=== PATIENT | female | born 1970 | race Caucasian/White ===

== ENCOUNTER 2020-12-01 19:08 | Emergency (ER) | payer MEDICAID ==
[~2020-12-01] VITALS: Ht 162.6 cm; Wt 64.9 kg
[2020-12-01 19:21] VITALS: BP 126/89
--- NOTE | 2020-12-01 19:27 | NUR ---
ERMD ASSESSING PT AT TENT.
--- NOTE | 2020-12-01 20:02 | NUR ---
EMT AT [facility] PERFORMING EKG.
--- NOTE | 2020-12-01 20:35 | NUR ---
ANDREA SWAB COLLECTED AND TAKEN TO LAB.
[2020-12-01] MEDS ORDERED: ALBU0.0912 IH (21:09)
--- NOTE | 2020-12-01 21:30 | NUR ---
pt eloped without d/c. Dr. Mercado made aware.
== END 2020-12-01 21:30 | disposition home or self-care (01) ==
LOC: MED 19:08
DX: U07.1 COVID-19 (principal); F12.90 Cannabis use, unspecified, uncomplicated; Z79.899 Other long term (current) drug therapy
CPT/HCPCS: 71045; 93005; 99285

== ENCOUNTER 2022-06-05 11:29 | Emergency (ER) | payer MEDICAID ==
[~2022-06-05] VITALS: Ht 162.6 cm; Wt 73.0 kg
[~2022-06-05 11:29] MED LIST: ALBU0.0912 IH
[2022-06-05 11:34] VITALS: BP 122/101
--- NOTE | 2022-06-05 11:47 | NUR ---
Dr. Venegas evaluating patient in chair C.
--- NOTE | 2022-06-05 11:55 | NUR ---
Pt ambulated to bed 11 and placed onto cardiac nurse specialist.
--- NOTE | 2022-06-05 12:11 | NUR ---
RAD at bedside
--- NOTE | 2022-06-05 12:16 | NUR ---
ASSUMED PATIENT CARE, NURSING ASSESSMENT COMPLETED.
[2022-06-05 12:19] LABS: APPEARANCE,URINE CLEAR (CLEAR); BILIRUBIN,URINE NEGATIVE (NEGATIVE); BLOOD, URINE NEGATIVE (NEGATIVE); COLOR,URINE YELLOW (YELLOW); LEUKOCYTE ESTERASE ,URINE TRACE (NEGATIVE); NITRITE, URINE NEGATIVE (NEGATIVE); UGLUCOSE NEGATIVE (NEGATIVE)
[2022-06-05 12:22] LABS: BASOPHILS # (AUTO) 0.1 K/uL (0.00-0.22); BASOPHILS % (AUTO) 1.4 % (0.0-2.0); EOSINOPHILS # (AUTO) 0.1 K/uL (0-0.4); EOSINOPHILS % (AUTO) 1.9 % (0.0-4.0); HEMATOCRIT 44.8 % (36-48); HEMOGLOBIN 15.6 g/dL (12.0-16.0); LYMPHOCYTES # (AUTO) 2.4 K/uL (2.5-16.5); MEAN CORPUSCULAR HEMOGLOBIN 30 pg (27-31); MEAN CORPUSCULAR HGB CONC 35 g/dL (33-37); MEAN CORPUSCULAR VOLUME 85.1 fL (80-94); MONOCYTES # (AUTO) 0.4 K/uL (0.8-1.0); MONOCYTES % (AUTO) 6.1 % (1.7-9.3); NEUTROPHILS # (AUTO) 3.4 K/uL (1.8-7.7); NEUTROPHILS % (AUTO) 52.6 % (42.2-75.2); PLATELET COUNT (AUTO) 163 K/uL (140-450); RED BLOOD CELL COUNT(AUTO) 5.26 MIL/uL (4.20-5.40); RED CELL DISTRIBUTION WIDTH 13.6 % (11.6-13.7); WHITE BLOOD COUNT (AUTO) 6.4 K/uL (4.8-10.8)
[2022-06-05 12:37] LABS: ALBUMIN 4.5 g/dL (3.4-5.0); ANION GAP 8.9 (8-16); ASPARTATE AMINOTRANSFERASE 19 U/L (15-37); CARBON DIOXIDE 32.5 mmol/L (21-32); CHLORIDE 100 mmol/L (98-107); CREATININE 0.8 mg/dL (0.6-1.3); GFR ARICAN-AMERICAN 97 mL/min (>90); GLUCOSE 119 mg/dL (74-106); POTASSIUM 3.4 mmol/L (3.5-5.1); SODIUM SERUM 138 mmol/L (136-145); TOTAL BILIRUBIN 0.3 mg/dL (0.0-1.0); UREA NITROGEN, BLOOD 12 mg/dL (7-18)
[2022-06-05] MEDS ORDERED: ONDA-188 SL (13:55)
[2022-06-05] MEDS ORDERED: CEPH-588 PO (13:56)
[2022-06-05] MEDS ORDERED: OMEP40EC23 PO (14:54)
[2022-06-05 15:03] VITALS: BP 125/80
--- NOTE | 2022-06-05 15:04 | NUR ---
DISPO AND MEDICAL DECISION, DC HOME WITH E-RX AND AFTERCARE INSTRUCTIONS, UNDERSTOOD BY PATIENT WELL. BP STABLE, NO CP, NO DISTRESS. DC HOME AMBULATORY.
== END 2022-06-05 15:03 | disposition home or self-care (01) ==
LOC: MED 11:29
DX: R07.9 Chest pain, unspecified (principal); I10 Essential (primary) hypertension; N30.00 Acute cystitis without hematuria; F12.90 Cannabis use, unspecified, uncomplicated; Z79.899 Other long term (current) drug therapy; Z79.2 Long term (current) use of antibiotics
CPT/HCPCS: 36415; 71045; 80053; 81001; 81025; 84484; 85025; 87086; 93005; 99285; Q0092

== ENCOUNTER 2023-04-28 03:30 | Emergency (ER) | payer MEDICAID, OTHER ==
[~2023-04-28] VITALS: Ht 162.6 cm; Wt 74.8 kg
[~2023-04-28 03:30] MED LIST changes: +CEPH-588 PO; +OMEP40EC23 PO; +ONDA-188 SL
[2023-04-28 03:38] VITALS: BP 151/109; PULSE 88; RESP 16; TEMP 97.9; O2SAT 98
[2023-04-28] MEDS ORDERED: diazePAM 5 MG TAB PO ONE (04:05)
[2023-04-28] MEDS ORDERED: KETOROLAC 30 MG/ML VIAL IM ONE (04:05)
[2023-04-28] MEDS ORDERED: KETOROLAC 60 MG/2 ML VIAL IM ONE (04:49)
[2023-04-28] MEDS ORDERED: NAPR-54 PO (05:26)
[2023-04-28] MEDS ORDERED: DIAZ5TAB6 PO (05:26)
[2023-04-28 05:35] VITALS: BP 135/90; PULSE 88; RESP 16; TEMP 97.9; O2SAT 98
== END 2023-04-28 05:35 | disposition home or self-care (01) ==
LOC: MED 03:30
DX: M54.6 Pain in thoracic spine (principal); Z79.899 Other long term (current) drug therapy; Z79.1 Long term (current) use of non-steroidal anti-inflammatories (NSAID); Z79.2 Long term (current) use of antibiotics
CPT/HCPCS: 71046; 93005; 96372; 99283; J1885